=== PATIENT | male | born 1970 | race Caucasian/White ===

== ENCOUNTER 2018-11-20 14:35 | Emergency (ER) | payer MEDICAID ==
[~2018-11-20] VITALS: Ht 180.3 cm; Wt 89.8 kg
[2018-11-20 14:42] VITALS: Ht 180.3 cm; Wt 89.8 kg
[2018-11-20 16:13] LABS: BASOPHIL % 0.4 % (0-2); PLATELET COUNT 201 x10^3mcL (130-400)
[2018-11-20 16:14] LABS: RED CELL DISTRIBUTION WIDTH 14.6 % (11.5-14.5)
[2018-11-20 16:33] LABS: CALCIUM 7.7 mg/dL (8.5-10.1); CARBON DIOXIDE 27.2 mmol/L (21-32); CHLORIDE SERUM 107 mmol/L (98-107); CREATININE SERUM 0.8 mg/dL (0.7-1.3); GFR1 > 60 mL/min; GLUCOSE SERUM 140 mg/dL (74-106); POTASSIUM SERUM 3.7 mmol/L (3.5-5.1); SODIUM SERUM 141 mmol/L (136-145)
[2018-11-20 16:39] LABS: ALBUMIN 3.4 g/dL (3.4-5.0); ALKALINE PHOSPHATASE 85 U/L (46-116); ALT/SGPT 25 U/L (16-63); AST/SGOT 15 U/L (15-37); MAGNESIUM 2.1 mg/dL (1.8-2.4); TOTAL PROTEIN, SERUM 6.5 g/dL (6.4-8.2)
[2018-11-20 16:47] LABS: FREE T4 0.99 ng/dL (0.76-1.46); FREE THYROXINE INDEX 2.5 ug/dL (1.4-4.5); T4(THYROXINE) 6.9 ug/dL (4.7-13.3)
[2018-11-20 16:54] LABS: T3 TOTAL 0.85 ng/mL
[2018-11-20 18:15] LABS: AMPHETAMINE QUAL UR NONE DETECTED (See below)
[2018-11-20 19:15] VITALS: BP 139/120
== END 2018-11-20 19:15 | disposition home or self-care (01) ==
LOC: ED 14:35
PROVIDERS: Emergency Medicine
DX: R00.2 Palpitations (principal); M25.512 Pain in left shoulder
CPT/HCPCS: 36415; 84439; Q0092